=== PATIENT | male | born 1990 | race Two or more races ===

== ENCOUNTER 2023-11-13 10:17 | Emergency (ER) | payer OTHER ==
[~2023-11-13] VITALS: Ht 170.2 cm; Wt 75.3 kg
[2023-11-13 13:19] VITALS: BP 134/98; PULSE 73; RESP 18; TEMP 97.5; O2SAT 98
[2023-11-13] MEDS ORDERED: ARIP1TAB7 PO (13:56)
[2023-11-13] MEDS ORDERED: ARIP2TAB PO (13:58)
== END 2023-11-13 14:00 | disposition home or self-care (01) ==
LOC: ER 10:17
DX: F32.A Depression, unspecified (principal); Z76.0 Encounter for issue of repeat prescription; Z79.899 Other long term (current) drug therapy; Z88.2 Allergy status to sulfonamides